=== PATIENT | female | born 1950 | race Caucasian/White ===

== ENCOUNTER 2017-12-13 06:33 | Inpatient (IN) ==
[2017-12-13] MEDS ORDERED: Chlorhexidine Gluconate 2% 1 Pack (2 Cloths) TOPICAL ONE (06:48)
[2017-12-13] MEDS ORDERED: Metoprolol Tartrate 25 MG Tablet PO ONE (06:48)
[2017-12-13] MEDS ORDERED: ceFAZolin 2 GM IV; once IV.SIG ONE (07:00)
[2017-12-13] MEDS ORDERED: Sodium Chlor 0.9% Inj 500 ML IV.SIG SCH (07:00)
[2017-12-13] MEDS ORDERED: Artificial Tears Opth Oint 3.5 GM Tube ONE (07:21)
[2017-12-13] MEDS ORDERED: Thrombin Topical Soln 5,000 UNIT Vial TOPICAL ONE (07:39)
[2017-12-13] MEDS ORDERED: Gelatin Size 100 Topical Foam ONE (07:39)
[2017-12-13] MEDS ORDERED: methylPREDNISolone acetate 40 MG/ML VIAL ONE (07:39)
[2017-12-13] MEDS ORDERED: fentaNYL Citrate Inj 100 MCG/2 ML Ampul ONE ×2 (08:10→12:58)
[2017-12-13] MEDS ORDERED: Phenylephrine/NS 1000 MCG/10ML Syringe IV.PUSH ONE (08:29)
[2017-12-13] MEDS ORDERED: Bupivacaine/Epinephrine 0.5% Inj 50 ML Vial ONE (08:38)
[2017-12-13] MEDS ORDERED: Bisacodyl 10 MG Supp RECTAL PRN (11:16)
[2017-12-13] MEDS ORDERED: *Meperidine Inj 25 MG/ML Vial PERIprocedural Use ONLY ONE (12:35)
[2017-12-13] MEDS ORDERED: *morphine SULFATE 4 MG/ML PERIprocedure ONLY ONE (12:47)
[2017-12-13] MEDS ORDERED: Morphine Inj 4 MG/ML Vial ONE (12:58)
--- NOTE | 2017-12-13 13:10 | P.OP ---
Preoperative Diagnosis: Lumbar synovial cyst with spinal stenosis Postoperative Diagnosis: Lumbar synovial cyst with spinal stenosis Date of procedure: 12/13/17 Procedure: L4-5 hemilaminectomy with microsurgical resection of a synovial cyst Anesthesia: AYLEEN Surgeon: Tyler Mahoney MD [employer] Shop Attendant: Mili Diaz Pathology: none sent Operation and Findings: INDICATIONS FOR THE SURGICAL PROCEDURE Ms Jones is a 67 year-old female who presented with intractable back pain and cuauhtemoc evidence of L5 lower extremity radiculopathy. She was found to have severe lumbar spinal stenosis with a large synovial cyst arising from the L4-5 facet. She has failed maximum nonsurgical management including multiple modalities of conservative treatment as well as pain management interventions by an interventional pain specialist. A surgical decompression was indicated as a last resort. The [id number] details of the procedure, indications, alternatives, risks and potential complications were fully discussed with the patient. The patient fully understood. All the questions were answered. No guarantees were given. The patient voiced requesting the procedure and provided informed consents. The patient was offered the alternative of delaying the procedure and continuing with nonsurgical management. DETAILS OF THE SURGICAL PROCEDURE After the induction of general anesthesia, endotracheal intubation was performed. A Mariscal catheter, bilateral KARLA hose and sequential compression devices were placed and kept throughout the procedure. The patient was positioned prone on a Vladimir table over a Sam frame. All pressure points were carefully padded with eggcrate mattress. The eyes were tapped shut after ointment was applied by the anesthesiologist to prevent corneal abrasion. A Dylon hugger was placed over the exposed lower body to maintain control of the core body temperature. The lower lumbar region was prepped and draped in the usual sterile fashion. A spinal needle was placed on the paraspinal muscle and a cross-table lateral x-ray performed with a C-arm. The skin incision was made over the spinous process of L4 and L5 along the midline. Small subcutaneous bleeders were controlled with a bipolar. The subcutaneous tissue and thoracolumbar fascia was opened with the Bovie and the spinous process of L4 and L5 were exposed. Then, using a Ramirez elevator and a Bovie a subperiosteal dissection was performed over the spinous process lamina and facet at L4 and L5 on the right side. A microdiscectomy self-retaining retractor was placed and an instrument was placed underneath the lamina of L4, and another cross-table lateral x-ray performed for radiological confirmation of the level. At this point in the procedure the operating microscope was draped in the usual sterile fashion and brought to the field. The rest of the surgical procedure was performed using microsurgical dissection technique with exception of the closure. Once the level was confirmed, a TPS drill brought to the field and a right hemilaminectomy was performed at L4-L5 on the left side in standard fashion using the 4mm drill bit, exposing the ligamentum flavum. The superior free border of the ligamentum flavum was from the dura with a ligament dissector and the ligamentum flavum was carefully removed with a 3 mm thin footplate Kerrison. The ligament Flavum and facets were significantly hypertrophic resulting on mass effect on the dural sac. Then, the medial aspect of the facet was drilled and undermined and the exiting L5 nerve root was identified and followed towards the foramen. A foraminotomy was performed with a 3 mm Kerrison. Then, the TPS drill was used to undermine the base of the spinous process, in order to carry out the decompression across the midline to the contralateral side. The ligamentum flavum across the midline was dissected from the dura with a ligament dissector and carefully removed with a 3 mm thin footplate Kerrison. A synovial cyst was identified, callusing significant mass effect on the due to sac and exiting L5 nerve root. Using a ligament dissector was carefully dissected from the surrounding tissues. Disease was very adherent to the due to sac and extreme care was taking viewed in the dissection to avoid a dural tear and CSF leak. A gross total resection of the C -spine was achieved. Its appearance was typical. An appropriate decompression of the dural sac and nerve root was achieved. Epidural veins located laterally to the dural sac were carefully coagulated with a bipolar and incised with microscissors. Gentle medial retraction of the dural sac allowed inspection of the disc space. The patient disk was unremarkable. Microdiscectomy was then performed. The incision was then thoroughly irrigated with antibiotic solution and hemostasis secured with the bipolar. A Valsalva maneuver failed to show any cerebrospinal fluid leak or bleeding. The incision was irrigated and closed in layers. 0 Vicryl with interrupted sutures was used to close the thoracolumbar fascia and superficial fascia. The subcutaneous tissue was closed with 3-0 Vicryl. The skin was closed with 4-0 running subcuticular Vicryl. Dermabond was applied to the skin. At the end of the procedure, the sponge, needle and instrument counts were all correct. Estimated blood loss was less than 60-80 cc. No blood transfusion was given. No intraoperative complications occurred. The patient received prophylactic antibiotics. The patient was then extubated and transferred to the recovery room in stable condition.
[2017-12-13] MEDS: Morphine Sulfate Inj 2 MG/ML Vial IV.PUSH PRN ×2 (14:47→17:39)
[2017-12-13] MEDS ORDERED: PROAIR RESPICLICK INH PRN (17:15)
[2017-12-13] MEDS: Vancomycin Inj 1,000 MG in Sodium Chlor 0.9% Inj 250 ML IV.SIG SCH (17:43)
--- NOTE | 2017-12-13 18:35 | XR ---
EXAM DATE: 12/13/2017 12:00 AM EDT AGE/SEX: 67 years / Female INDICATIONS: Level localization L4,L5. CLINICAL DATA: This is the patient's initial encounter. Patient reports that signs and symptoms have been present for 1 day and indicates a pain score of Nonresponsive. MEDICAL/SURGICAL HISTORY: None. None. COMPARISON: No prior exams available for comparison. FINDINGS: A single view of the spine was performed. There is normal alignment of the vertebral bodies without evidence of subluxation. Instrument overlies posterior elements at L4-5. CONCLUSION: Operative film as above. Electronically signed by: Richard Bardales MD 12/13/2017 6:34 PM EDT
[2017-12-13] MEDS: Senna/Docusate Sodium 8.6/50 MG Tablet PO SCH (20:22)
[2017-12-13] MEDS: Pilocarpine HCl 5 MG Tablet PO SCH (20:23)
[2017-12-14] MEDS: Vancomycin Inj 1,000 MG in Sodium Chlor 0.9% Inj 250 ML IV.SIG SCH (04:53)
[2017-12-14] MEDS: Pilocarpine HCl 5 MG Tablet PO SCH (08:45)
[2017-12-14] MEDS: Senna/Docusate Sodium 8.6/50 MG Tablet PO SCH (08:45)
[2017-12-14 08:48] VITALS: O2SAT 97
[2017-12-14] MEDS ORDERED: LAMICTAL 100 MG PO SCH (09:00)
[2017-12-14] MEDS ORDERED: ADDERALL 25 MG PO SCH (09:00)
[2017-12-14] MEDS ORDERED: Vitamins A,C,E/Lutein/Minerals Tablet PO SCH (09:00)
[2017-12-14] MEDS ORDERED: Benzonatate 100 MG Capsule PO SCH (09:00)
--- NOTE | 2017-12-14 12:37 | P.PNNS ---
Subjective Interval history: No acute events overnight. Physical Exam Vital signs: Vital Signs 12/13/17 12:45 12/13/17 13:00 12/13/17 13:15 Temperature Pulse Rate 65 63 61 Respiratory Rate 14 12 14 Blood Pressure 138/62 132/63 134/59 L Pulse Oximetry 98 98 100 12/13/17 15:59 12/13/17 18:58 12/13/17 18:59 Temperature 98.3 F Pulse Rate 62 Respiratory Rate 16 18 18 Blood Pressure 134/62 Pulse Oximetry 94 L 12/13/17 20:00 12/13/17 20:52 12/13/17 23:55 Temperature 98.3 F 98.3 F Pulse Rate 74 75 Respiratory Rate 18 17 16 Blood Pressure 127/58 L 129/61 Pulse Oximetry 96 97 12/14/17 00:52 12/14/17 03:15 12/14/17 04:00 Temperature 98.7 F Pulse Rate 72 Respiratory Rate 17 18 18 Blood Pressure 123/57 L Pulse Oximetry 96 12/14/17 08:00 Temperature 98.5 F Pulse Rate 65 Respiratory Rate 16 Blood Pressure 147/67 H Pulse Oximetry 97 Intake & Output 12/13/17 12/14/17 12/14/17 18:59 06:59 18:59 Intake Total 2460 / 2460 2220 / 2220 Output Total 80 / 80 Balance 2380 / 2380 2220 / 2220 Weight 69 kg Intake: IV 1500 / 1500 LR 1000 mL Inj 1,000 ML @ 30 1000 / 1000 mls/hr IV.SIG .Q24H YONATHAN Rx#: [id number] Vancomycin Inj 1,000 MG In NS 500 / 500 Inj 250 ML @ 250 mls/hr IV.SIG Q12H YONATHAN Rx#:[id number] Oral 660 / 660 720 / 720 Anesthesia Amount 1800 / 1800 Output: Estimated Blood Loss 80 / 80 Other: # Voids 1 3 Date of Last Bowel Movement 12/12/17 12/12/17 # Bowel Movements 0 Narrative: Opens eyes spontaneously Alert and oriented x3 Follows commands x4 Full strength Assessment and Plan - Plan 67 y/o female s/p L4/5 hemilaminectomy for synovial cyst resection. Doing well post-operatively. Ambulating, voiding spontaneously, tolerating a diet. Plan: Discharge home this afternoon. Follow-up with Dr. Mahoney as scheduled.
[2017-12-14 13:08] VITALS: BP 143/65; PULSE 62; RESP 14; TEMP 98.4
[2017-12-14] MEDS ORDERED: Montelukast 10 MG Tablet PO SCH (18:00)
[2017-12-15] MEDS ORDERED: Gabapentin 300 MG Capsule PO SCH (09:00)
--- NOTE | 2017-12-20 11:16 | P.DS ---
Date of admission: 12/13/17 06:33 Primary care physician: Star Nixon MD Brief History from admission: Ms Jones is a 67 year-old female who presented with intractable back pain and cuauhtemoc evidence of L5 lower extremity radiculopathy. She was found to have severe lumbar spinal stenosis with a large synovial cyst arising from the L4-5 facet. She has failed maximum nonsurgical management including multiple modalities of conservative treatment as well as pain management interventions by an interventional pain specialist. A surgical decompression was indicated as a last resort. DS: Medications - Discharge Medications Prescriptions: hydrocodone-acetaminophen 1 tab PO Q4H PRN #20 tab PRN Reason: Pain Scale 1 To 10 DS: Summary Hospital Course: Ms. Jones underwent a L4-5 hemilaminectomy with microsurgical resection of a synovial cyst on 12/13/17 for Lumbar synovial cyst with spinal stenosis. Her surgery went well without complications. She was discharged home the following day in stable conditions. - Time Spent with Patient Total time spent providing and/or coordinating discharge services: Less than 30 minutes - Quality: VTE Deep Vein Thrombosis/Pulmonary Embolism Present on Admission: No Results Procedures completed during hospitalization: L4-5 hemilaminectomy with microsurgical resection of a synovial cyst - Impressions ITS Impressions Lumbar Spine X-Ray 12/13/17 00:00 CONCLUSION: Operative film as above. Discharge Plan - Discharge Disposition Patient Disposition: Discharge Home - Discharge Condition Condition: Stable - Discharge Order Discharge Orders: Discharge Order (Routine); Ordered 12/14/17 Ordered By: Hunter [facility] Clear for Discharge (Routine); Ordered 12/14/17 Ordered By: Hunter Duke - Physicians Team Primary Care Provider: Star Nixon Attending Provider: Tyler Mahoney - Rxs /Orders / Referrals /Forms Prescriptions: New clonidine HCl [Catapres] 0.1 mg Tablet 0.1 mg PO Q6H PRN (Reason: Sys Bp Greater Than 170 Mmhg) RF: 0 hydrocodone-acetaminophen 10-325 mg Tablet 1 tab PO Q4H PRN (Reason: Pain Scale 1 To 10) Qty: 20 RF: 0 Continue albuterol sulfate [ProAir RespiClick] 90 mcg/actuation Aerosol Powdr Breath Activated 2 puff INHALATION Q6H PRN (Reason: Shortness Of Breath) benzonatate 100 mg Capsule 100 mg PO DAILY cholecalciferol (vitamin D3) [Vitamin D3] 5,000 unit Tablet 5,000 unit PO DAILY dextroamphetamine-amphetamine 20 mg Tablet 20 mg PO DAILY dextroamphetamine-amphetamine 25 mg Capsule, Er Triphasic 24 Hr 25 mg PO DAILY fentanyl 25 mcg/hr Patch 72 Hour 1 patch TRANSDERMAL Q72H flaxseed oil 1,000 mg Capsule 1,000 mg PO DAILY gabapentin 300 mg Capsule 300 mg PO EVERY OTHER DAY lamotrigine 100 mg Tablet Extended Release 24hr 100 mg PO DAILY meloxicam [Mobic] 7.5 mg Tablet 15 mg PO DAILY montelukast 10 mg Tablet 10 mg PO QPM [id number] acid-lutein [Adult Multivitamin (w-lutein)] 200-137.5 mcg Tablet ,Chewable 1 tab PO DAILY pilocarpine HCl 5 mg Tablet 5 mg PO TID Referrals: Star Nixon MD [Primary Care Provider] - See Instructions - Discharge Instructions Patient Printed Instructions: Laminectomy (DC) Additional Instructions: No lifting more than 10 lbs. Maintain dressing until you see Dr. Mahoney in follow-up. Keep incision clean and dry. Ok to shower, but keep bandage dry.
== END 2017-12-14 14:25 | disposition home or self-care (01) ==
LOC: HSDI 06:33 → EDSTATUS 08:30 → N06 14:17
PROVIDERS: ADMIT Neurological Surgery; ATTEND Neurological Surgery